=== PATIENT | male | born 2005 | race Caucasian/White ===

== ENCOUNTER 2023-10-28 15:22 | Emergency (ER) | payer OTHER ==
[~2023-10-28] VITALS: Ht 170.2 cm; Wt 79.4 kg
[2023-10-28 15:27] VITALS: BP 97/62; PULSE 95; RESP 20; TEMP 98.1; O2SAT 99
== END 2023-10-28 16:52 | disposition home or self-care (01) ==
LOC: MED 15:22
DX: F10.129 Alcohol abuse with intoxication, unspecified (principal); R11.2 Nausea with vomiting, unspecified; Y90.9 Presence of alcohol in blood, level not specified
CPT/HCPCS: 99283